=== PATIENT | female | born 2005 | race Caucasian/White ===

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

== ENCOUNTER 2025-01-27 15:53 | Outpatient (CLI) | payer OTHER, SELFPAY ==
--- OUTSIDE RECORDS SUMMARY | 2025-01-27 16:20 | XMS_ITS | Clinical Summary ---
Author Organization [facility] Address [address] [place] [id number] Care Team Providers Care Crepe Sole Scourer Name Role Phone Unavailable Primary Care Provider [...] Immunization (1 of 2 - Standard) 2021 SARS-COV-2 Immunization ( season) 2024 Influenza Immunization (#1) 01/31/202503/02, 07/16/2016, 04/02/2013 Respiratory Syncytial Virus (RSV) Immunization (Adult) (1 [...]
[2025-01-27 16:33] LABS: Hematocrit 37.5 % (37.0-47.0); Hemoglobin 11.6 g/dL (12.0-15.0); Immature Granulocyte Percent A 0.2 % (0-0.5); Lymphocytes Absolute Auto 1.66 K/mm3 (0.9-3.2); Mean Corpuscular HGB Conc 30.9 g/dl (32-36); Mean Corpuscular Hemoglobin 25.5 pg (26-34); Mean Corpuscular Volume 82.4 fl (80-100); Nucleated Red Blood Cells Absolute Auto 0.000 K/mm3 (0.0-0.012); Nucleated Red Blood Cells Perc 0.0 % (0.0-0.2); Platelet Count Result 380 k/mm3 (150-375); Red Blood Count 4.55 M/mm3 (4.2-5.4); White Blood Count 8.2 K/mm3 (4.5-10.0)
[2025-01-27 17:37] LABS: Ferritin 9.21 ng/mL (6.24-137)
== END 2025-01-27 15:54 | disposition home or self-care (01) ==
DX: R89.9 Unspecified abnormal finding in specimens from other organs, systems and tissues (principal); D64.9 Anemia, unspecified; Z13.228 Encounter for screening for other metabolic disorders
CPT/HCPCS: 36415; 82728; 85025